=== PATIENT | male | born 1985 | race Caucasian/White ===

== ENCOUNTER 2024-12-17 17:08 | Emergency (ER) | payer SELFPAY ==
--- NOTE | 2024-12-17 19:03 | RAD REPORT ---
EXAMINATION: Head Brain Wo Cont CLINICAL INDICATION: Male, 39 years old.HEADACHE TECHNIQUE: Axial CT images from the skull base to the vertex without intravenous contrast. Coronal an d sagittal reformatted images were created from the data set. One or more of the following dose reduction techniques were used: Automated exposure control, adjustment of the mA and/or kV according to patient size, and/or iterative reconstruction. Unless otherwise specified, incidental findings do not require dedicated imaging follow-up. [id number]. COMPARISON: No prior exam. FINDINGS: INTRACRANIAL: No acute intracranial hemorrhage. No hydrocephalus. No mass effect or midline shift. No significant white matter disease. VASCULATURE: No visualized abnormalities in the arteries or dural venous sinuses. SCALP/SKULL: No calvarial fracture identified. No acute soft tissue abnormality. SINUSES: Polypoid thickening in the left maxillary sinus, left frontal sinus, left ethmoid air cells, and occlusion of the left nasal passage. No significant mastoid fluid. IMPRESSION: No acute intracranial abnormality. Significant paranasal sinus disease on the left involving the ethmoid air cells, maxillary sinus, and frontal sinus which could explain the patient's headache. Consider ENT referral.
[2024-12-17] MEDS ORDERED: DIPHENHYDRAMINE 50 MG/ML VIAL ONE (19:51)
[2024-12-17] MEDS ORDERED: DOXYCYCLINE 100 MG CAP PO ONE (19:51)
[2024-12-17] MEDS ORDERED: KETOROLAC 30 MG/ML INJ ONE (19:51)
[2024-12-17] MEDS ORDERED: METOCLOPRAMIDE 10 MG/2mL INJ ONE (19:51)
[2024-12-17] MEDS ORDERED: NA CHLORIDE 0.9% 1,000 ML ONE (19:52)
--- NOTE | 2024-12-17 20:22 | ER ---
Nurse's Notes [facility] Name: Brent Iniguez Age: 39 yrs Sex: Male : 1985 Arrival Date: 12/17/2024 Time: 17:08 Bed 10 Private MD: Diagnosis: Acute pansinusitis-left;Cutaneous abscess of face Presentation: 12/17 17:58 Chief complaint: Patient states: migraine x 4 days with some intermittent nausea. Pain me1 "5/10". Patient has an abscess to right jaw for about a week. Patient opened it to drain but has not applied pressure, Not on antibiotics. Report some sinus congestion. Coronavirus screen: Vaccine status: Patient reports being unvaccinated. Ebola Screen: No symptoms or risks identified at this time. Initial Sepsis Screen: Does the patient meet any 2 criteria? HR > 90 bpm. Does the patient have a suspected source of infection? No. Patient's initial sepsis screen is negative. Risk Assessment: Do you want to hurt yourself or someone else? Patient reports no desire to harm self or others. Onset of symptoms was December 10, 2024. 17:58 Method Of Arrival: Ambulatory me1 17:58 Acuity: TERRANCE 3 me1 Triage Assessment: 18:02 General: Appears uncomfortable, well groomed, well developed, well nourished, Behavior me1 is calm, cooperative, appropriate for age, Reports S[place]O for 4 days. Pain: Complains of pain in head Pain does not radiate. Pain currently is 5 out of 10 on a pain scale. Quality of pain is described as aching, Pain began gradually, Is continuous. EENT: No signs and/or symptoms were reported regarding the EENT system. Neuro: Level of Consciousness is awake, alert, obeys commands, Oriented to person, place, time, situation, Appropriate for age. Neuro: Reports headache frontal area. Cardiovascular: Patient's skin is warm and dry. Respiratory: Airway is patent Respiratory effort is even, unlabored, Respiratory pattern is regular, symmetrical. GI: No signs and/or symptoms were reported involving the gastrointestinal system. : No signs and/or symptoms were reported regarding the genitourinary system. Derm: Wound noted right mandible Wound is red, raised, draining. Musculoskeletal: No signs and/or symptoms reported regarding the musculoskeletal system. Historical: - Allergies: 18:01 PENICILLINS; me1 - PMHx: 18:01 None; me1 - PSHx: 18:01 None; me1 - Immunization history:: Adult Immunizations up to date. - Infectious Disease History:: Denies. - Social history:: Smoking status: Patient/guardian denies using tobacco, but has a distant history of tobacco abuse. Screenin:10 [facility] ED Fall Risk Assessment (Adult) History of falling in the last 3 months, me1 including since admission No falls in past 3 months (0 pts) Confusion or Disorientation No (0 pts) Intoxicated or Sedated No (0 pts) Impaired Gait No (0 pts) Mobility Assist Device Used No (0 pt) Altered Elimination No (0 pt) Score/Fall Risk Level 0 - 2 = Low Risk Maintained a safe environment, Provided non-skid footwear, Hourly rounding (assess needs \\T\\ fall precautionary measures) done. Abuse screen: Denies threats or abuse. Nutritional screening: No deficits noted. Tuberculosis screening: No symptoms or risk factors identified. Assessment: 19:10 General: Appears uncomfortable, well groomed, well developed, well nourished, Behavior me1 is calm, cooperative, appropriate for age, Reports migraine x 4 days with some intermittent nausea. Pain "5/10". Patient has an abscess to right jaw for about a week. Patient opened it to drain but has not applied pressure, Not on antibiotics. Report some sinus congestion. Pain: Complains of pain in left maxillary sinus and left ethmoid sinus and left frontal sinus and face and right jaw and right mandible and head Pain does not radiate. Pain currently is 5 out of 10 on a pain scale. Quality of pain is described as aching, Pain began gradually, Is continuous. Neuro: Level of Consciousness is awake, alert, obeys commands, Oriented to person, place, time, situation, Appropriate for age. Cardiovascular: Patient's skin is warm and dry. Respiratory: Airway is patent Respiratory effort is even, unlabored, Respiratory pattern is regular, symmetrical. GI: Reports nausea. : No signs and/or symptoms were reported regarding the genitourinary system. EENT: No signs and/or symptoms were reported regarding the EENT system. Derm: Wound noted right mandible Wound is abscess. Musculoskeletal: No signs and/or symptoms reported regarding the musculoskeletal system. Vital Signs: 17:58 BP 138 / 90; Pulse 98; Resp 17; Temp 98.3; Pulse Ox 98% ; Weight 65.77 kg; Height 6 ft. me1 0 in. ; Pain 5/10; 20:46 BP 126 / 86; Pulse 94; Resp 16; Temp 98.1; Pulse Ox 97% ; me1 17:58 Body Mass Index 19.67 (65.77 kg, 182.88 cm) me1 17:58 Pain Scale: Adult me1 ED Course: 17:12 Patient arrived in ED. ts1 17:21 Celine Thayer PA-C is PHCP. sb4 17:21 Jason Ramirez MD is Attending Physician. sb4 18:01 Triage completed. me1 18:01 Arm band placed on Patient placed in waiting room. me1 18:49 Head Brain Wo Cont CT In Process Unspecified. EDMS 19:10 Patient has correct armband on for positive identification. Bed in low position. Call me1 light in reach. Side rails up X2. Provided Education on: POC. Verbalized understanding.. Client placed on continuous cardiac and pulse oximetry monitoring. NIBP monitoring applied. Pulse ox on. NIBP on. 19:10 No provider procedures requiring assistance completed. me1 19:39 Monisha Bobby, PASQUALE is Primary Nurse. me1 19:48 Inserted saline lock: 20 gauge in left antecubital area, using aseptic technique. me1 20:21 Narcisa Agudelo MD is Referral Physician. sb4 20:46 IV discontinued, intact, bleeding controlled, No redness/swelling at site. Pressure me1 dressing applied. Administered Medications: 19:05 CANCELLED (Physician Discretion): trimethoprim-sulfamethoxazole(160 mg-800 mg (ds) 1 sb4 tablet PO once 19:58 Drug: Doxycycline PO 100 mg PO once Route: PO; me1 20:35 Follow up: Response: No adverse reaction me1 19:59 Drug: NS 0.9% IV 1000 ml IV at 1 bolus Per protocol; to be given as a bolus over 60 me1 minutes Route: IV; Rate: 1 bolus; Site: left antecubital; 20:35 Follow up: Response: No adverse reaction; IV Status: Completed infusion; IV Intake: me1 1000ml 19:59 Drug: Ketorolac IVP 30 mg IVP once Route: IVP; Site: left antecubital; me1 20:35 Follow up: Response: No adverse reaction; Pain is decreased me1 19:59 Drug: metoCLOPramide IVP 10 mg IVP once; over 1 to 2 minutes Route: IVP; Site: left me1 antecubital; 20:35 Follow up: Response: No adverse reaction; Nausea is decreased me1 19:59 Not Given (Patient Refused; patient is drivingg): [id number] mg IVP once me1 Medication: 19:10 VIS not applicable for this client. me1 Intake: 20:35 IV: 1000ml; Total: 1000ml. me1 Outcome: 20:21 Discharge ordered by MD. sb4 20:46 Discharged to home ambulatory, me1 20:46 Condition: stable 20:46 Discharge instructions given to patient, Instructed on discharge instructions, follow up and referral plans. medication usage, Demonstrated understanding of instructions, follow-up care, medications, Prescriptions given X 1, 20:47 Patient left the ED. me1 Signatures: Dispatcher [employer] EDCeline Jacobs PA-C PA-C sb4 Adelina Raymundo PAS PAS ts1 Monisha Bobby RN RN me1 Corrections: (The following items were deleted from the chart) 18:05 17:58 Chief complaint: Patient states: migraine x 4 days with some intermittent nausea. me1 Pain "5/10". Patient has an abscess to right jaw for about a week. Patient opened it to drain but has not applied pressure, Not on antibiotics. me1 20:32 17:58 Chief complaint: Patient states: migraine x 4 days with some intermittent nausea. me1 Pain "5/10". Patient has an abscess to right jaw for about a week. Patient opened it to drain but has not applied pressure, Not on antibiotics. Report some sinus congestion me1
--- NOTE | 2024-12-17 20:22 | EDPHYS ---
Physician Documentation [facility] Name: Brent Iniguez Age: 39 yrs Sex: Male : 1985 Arrival Date: 12/17/2024 Time: 17:08 Bed 10 Private MD: ED Physician Jason Ramirez HPI: 12/17 19:07 This 39 yrs old Male presents to ER via Ambulatory with complaints of migraine, abscess.sb4 19:11 left sided migraine for 3 days with associated sinus pressure. no fever, chills. no sb4 blurry vision, sensitivity to light, vomiting. does endorse nausea. no history of migraines. no medical history. also reports an abscess on his right cheek that has come and go over the past few months. Historical: - Allergies: 18:01 PENICILLINS; me1 - PMHx: 18:01 None; me1 - PSHx: 18:01 None; me1 - Immunization history:: Adult Immunizations up to date. - Infectious Disease History:: Denies. - Social history:: Smoking status: Patient/guardian denies using tobacco, but has a distant history of tobacco abuse. ROS: 19:11 Constitutional: Negative for fever, chills, and weight loss, sb4 19:11 ENT: Positive for sinus congestion, 19:11 Skin: Positive for abscess, of the right jaw, 19:11 Neuro: Positive for headache, 19:11 All other systems are negative, Exam: 19:14 Constitutional: This is a well developed, well nourished patient who is awake, alert, sb4 and in no acute distress. Eyes: Extra-ocular motions intact. Periorbital areas with no swelling, redness, or edema. ENT: Mucous membranes moist. Cardiovascular: Regular rate and rhythm with a normal S1 and S2. Respiratory: No increased work of breathing, no retractions or nasal flaring. Abdomen/GI: Soft, non-tender, no distension. Neuro: Awake and alert, GCS 15, oriented to person, place, time, and situation. Motor strength 5/5 in all extremities. Sensory grossly intact. 19:14 Head/face: Sinus tenderness, that is moderate, is located over the left frontal sinus, left ethmoid sinus and left maxillary sinus, 19:14 Skin: abscess, that is small, of the right mandible, with fluctuance, that is mild, Vital Signs: 17:58 BP 138 / 90; Pulse 98; Resp 17; Temp 98.3; Pulse Ox 98% ; Weight 65.77 kg; Height 6 ft. me1 0 in. ; Pain 5/10; 20:46 BP 126 / 86; Pulse 94; Resp 16; Temp 98.1; Pulse Ox 97% ; me1 17:58 Body Mass Index 19.67 (65.77 kg, 182.88 cm) me1 17:58 Pain Scale: Adult me1 MDM: 17:23 Medical Screening Exam initiated sb4 19:14 Differential diagnosis: sinusitis, sinus headache, migraine, abscess, dental absces. sb4 Data reviewed:. 12/17 18:06 Order name: Head Brain Wo Cont CT; Complete Time: 19:04 sb4 12/17 18:06 Order name: IV Start; Complete Time: 19:59 sb4 Administered Medications: 19:05 CANCELLED (Physician Discretion): trimethoprim-sulfamethoxazole(160 mg-800 mg (ds) 1 sb4 tablet PO once 19:58 Drug: Doxycycline PO 100 mg PO once Route: PO; me1 20:35 Follow up: Response: No adverse reaction me1 19:59 Drug: NS 0.9% IV 1000 ml IV at 1 bolus Per protocol; to be given as a bolus over 60 me1 minutes Route: IV; Rate: 1 bolus; Site: left antecubital; 20:35 Follow up: Response: No adverse reaction; IV Status: Completed infusion; IV Intake: me1 1000ml 19:59 Drug: Ketorolac IVP 30 mg IVP once Route: IVP; Site: left antecubital; me1 20:35 Follow up: Response: No adverse reaction; Pain is decreased me1 19:59 Drug: metoCLOPramide IVP 10 mg IVP once; over 1 to 2 minutes Route: IVP; Site: left me1 antecubital; 20:35 Follow up: Response: No adverse reaction; Nausea is decreased me1 19:59 Not Given (Patient Refused; patient is drivingg): [id number] mg IVP once me1 Disposition Summary: 12/17/24 20:21 Discharge Ordered Notes: Location: Home sb4 Problem: new sb4 Symptoms: have improved sb4 Condition: Stable sb4 Diagnosis - Acute pansinusitis - left sb4 - Cutaneous abscess of face sb4 Followup: sb4 - With: Narcisa Agudelo MD - When: 1 week - Reason: Further diagnostic work-up, Recheck today's complaints, Re-evaluation by your physician Discharge Instructions: - Discharge Summary Sheet sb4 - Skin Abscess, [id number] sb4 - Sinusitis, Adult, [id number] sb4 - How to Perform a Sinus Rinse, [id number] sb4 Forms: - Work release form sb4 - Antibiotic Education sb4 - Patient Portal Instructions sb4 - Leadership Thank You Letter sb4 Prescriptions: - Doxycycline Hyclate 100 mg Oral Tablet - take 1 tablet ORAL route every 12 hours; 20 tablet; Refills: 0, Product sb4 Selection Permitted Addendum: 12/19/2024 19:19 Co-signature as Attending Physician, Jason Ramirez MD I agree with the assessment and c alva plan of care. Signatures: Dispatcher [employer] Jason Orantes MD MD cha Brown, Sophia, PA-C PA-C sb4 Monisha Bobby, RN RN me1 Corrections: (The following items were deleted from the chart) 12/17 19:05 18:06 Trimethoprim-Sulfamethoxazole PO (160 mg-800 mg (DS) 1 tablet PO once ordered. [id number]
[2024-12-17 21:11] VITALS: BP 138/90; TEMP 98.3; O2SAT 98
== END 2024-12-17 20:47 | disposition home or self-care (01) ==
LOC: ER 17:08
DX: J01.40 Acute pansinusitis, unspecified (principal); L02.01 Cutaneous abscess of face
CPT/HCPCS: 70450; 96361; 96374; 96375; 99284; J1200; J2765; J7030